=== PATIENT | female | born 1995 | race Caucasian/White ===

== ENCOUNTER 2019-04-04 21:33 | Emergency (ER) | payer BC, OTHER ==
[~2019-04-04] VITALS: Ht 162.6 cm; Wt 90.0 kg
[2019-04-04 21:39] VITALS: BP 118/70
[2019-04-04] MEDS ORDERED: FLUO20CA19 PO (21:44)
[2019-04-04] MEDS ORDERED: QUET50TA PO (21:44)
[2019-04-04] MEDS ORDERED: GABA300C10 PO (21:44)
[2019-04-04] MEDS ORDERED: LORazepam 0.5MG TABLET ONE ×2 (21:55→23:53)
[2019-04-04] MEDS ORDERED: LORazepam 0.5MG TABLET PO ONE (22:00)
[2019-04-04 22:15] LABS: BASOPHILS # (AUTO) 0.03 x10^3/uL (0-0.1); BASOPHILS % (AUTO) 0 % (0-1); EOSINOPHILS # (AUTO) 0.09 x10^3/uL (0-0.4); EOSINOPHILS % (AUTO) 1 % (1-7); LYMPHOCYTES # (AUTO) 1.73 x10^3/uL (1-3.4); LYMPHOCYTES % (AUTO) 18 % (22-44); MD NO; MEAN CORPUSCULAR HEMOGLOBIN 28.9 pg (27.0-34.8); MEAN CORPUSCULAR HGB CONC 33.5 g/dL (32.4-35.8); MEAN CORPUSCULAR VOLUME 86.4 fL (80-100); MONOCYTES # (AUTO) 0.78 x10^3/uL (0.2-0.8); MONOCYTES % (AUTO) 8 % (2-9); NEUTROPHILS # (AUTO) 6.98 x10^3/uL (1.8-6.8); NEUTROPHILS % (AUTO) 73 % (42-75); PLATELET COUNT 219 x10^3/uL (130-400); RED BLOOD COUNT 4.95 x10^6/uL (3.82-5.3); RED CELL DISTRIBUTION WIDTH 13.6 % (9.6-15.2)
--- NOTE | 2019-04-04 22:15 | NUR ---
REPORT RECEIVED FROM MARY LARIOS.
[2019-04-04 22:24] LABS: ALBUMIN 3.6 g/dL (3.4-5.0); ANION GAP 8 mmol/L (5-15); CALCIUM 8.4 mg/dL (8.5-10.1); CHLORIDE 112 mmol/L (98-107); SALICYLATE LEVEL < 1.7 mg/dL (2.8-20.0)
[2019-04-04 22:27] LABS: ALANINE AMINOTRANSFERASE 21 U/L (12-78); ALKALINE PHOSPHATASE 56 U/L (45-117); BILIRUBIN,TOTAL 0.2 mg/dL (0.2-1.0); CREATININE 0.97 mg/dL (0.55-1.02)
[2019-04-04 22:39] LABS: AMPHETAMINE SCREEN, URINE Negative (Negative); BARBITURATE SCREEN, URINE Negative (Negative); BENZODIAZEPINE SCREEN, URINE Negative (Negative); CANNABINOID SCREEN, URINE Negative (Negative); COCAINE SCREEN, URINE Negative (Negative); METHADONE SCREEN, URINE Negative (Negative); OPIATE SCREEN, URINE Negative (Negative)
--- NOTE | 2019-04-04 23:10 | NUR ---
PT RESTING IN [facility]. PT'S AOX4. RESPS EVEN AND UNLABORED. SITTER MONITORING FROM [employer]. ROOM SECURE.
--- NOTE | 2019-04-05 00:51 | NUR ---
PT MEDICATED PER EMAR. PT TOLERATED WELL.
[2019-04-05] MEDS ORDERED: LORazepam 0.5MG TABLET PO ONE (01:00)
--- NOTE | 2019-04-05 01:31 | NUR ---
PT RESTING IN [facility]. PT'S AOX4. RESPS EVEN AND UNLABORED. SITTER MONITORING FROM [employer]. ROOM REMAINS SECURE.
--- NOTE | 2019-04-05 03:40 | NUR ---
PT SLEEPING IN [facility]URNY. RESPS EVEN AND UNLABORED. SITTER MONITORING FROM [employer]. ROOM REMAINS SECURE.
--- NOTE | 2019-04-05 04:01 | NUR ---
PT GIVEN DC INSTRUCTIONS. PT'S AOX4. RESPS EVEN AND UNLABORED. NO ACUTE DISTRESS AT DC.
== END 2019-04-05 04:02 | disposition home or self-care (01) ==
LOC: ED 22:37
DX: F32.9 Major depressive disorder, single episode, unspecified (principal); F41.1 Generalized anxiety disorder
CPT/HCPCS: 36415; 80053; 80307; 85025; 99284